=== PATIENT | female | born 1955 | race Caucasian/White ===

== ENCOUNTER 2016-06-25 22:05 | Emergency (ER) | payer OTHER ==
--- NOTE | 2016-06-26 00:28 | ED CLINICAL REPORT ---
Clinical Report - Physicians/Mid Levels [facility] [address] [place] [address] 06/25/2016 22:07 Patient: FENG MOORE Time Seen: 22:43 Mar 2016. Arrived- By private vehicle. Historian- patient. CPT: ER phys charges level 3 plus (#102143). Ant/nasal hemorrhage simple (#[id number]). HISTORY OF PRESENT ILLNESS Chief Complaint: NOSEBLEED. Since today and is still present. Location- left nare. The patient has had epistaxis. Similar symptoms previously: Once, as bad. Seen in the ED. Diagnosis: posterior nosebleed. Recent medical care: Not recently seen/assessed. REVIEW OF SYSTEMS No fever, chills, excessive bruising, bleeding from gums or headache. No visual disturbance, cough, difficulty breathing, chest pain or nausea. No vomiting, diarrhea, abdominal pain, black stools or difficulty with urination. No skin rash or bloody stools. All systems otherwise negative, except as recorded above. PAST HISTORY See nurses notes. Has had prior nosebleeds. No history of bleeding disorders. Medications: Citrucelle. Tylenol PM took 2 tonight. Aspirin Oral (Tablet Chewable 81 mg) 1 tablet, daily. Dicyclomine HCl Oral. Losartan Potassium Oral. Hydroochlorothiazide. Atorvastatin Calcium Oral. Allergies: Shellfish and Chlorine. Definite Moderate (Upper Resp problems and rashes.). SOCIAL HISTORY Former smoker. Occasional alcohol use. No drug use. ADDITIONAL NOTES The nursing notes have been reviewed. PHYSICAL EXAM Vital Signs: 06/25/2016 22:14 BP: 157/91. HR: 90. RR: 18. O2 saturation: 97%. Temp: 97.5 F. Pain level now: 0/10. Appearance: Alert. Anxious. Patient in mild distress. Eyes: Eyes normal inspection. ENT: Ears normal. Nose: Minimal left-nare active bleeding from uncertain location. Fresh clots present. No nasal foreign body. No tenderness to palpation/percussion over the sinuses. Throat: Pharynx normal. Neck: Normal inspection. CVS: Normal heart rate and rhythm. Heart sounds normal. Respiratory: No respiratory distress. Breath sounds normal. Abdomen: Soft and nontender. Back: Normal inspection. Skin: Skin warm. Normal skin color. No rash. Extremities: Extremities exhibit normal ROM. No lower extremity edema. Neuro: Oriented X 3. No motor deficit. No sensory deficit. PROGRESS AND PROCEDURES Management of Epistaxis: The patient was cooperative. Decongestant spray instilled. Bleeding site was from an unidentified area. The patient blew nose to clear clots and pinched the nose temporarily. Examined with nasal speculum. Suction used. On the left; inserted a nasal tampon anteriorly and posteriorly. Following the procedure the patient was stable and there was no further bleeding. No complications. Estimated blood loss: 10 mL. Patient/family counseled. Disposition: Discharged. Condition: stable. CLINICAL IMPRESSION Acute anterior, transient epistaxis INSTRUCTIONS No strenuous activity. Rest. (No hot liquids, sneeze through mouth, keep head up, no aspirin or motrin, and avoid touching the nose. Keep nasal sponge moist every 4 hours with afrin. Gently pull pack out in 48 hours but make sure it is wet before pulling it out. Keep head up and use nose clamp if bleeding starts again. Return to ER for re-bleeding.). OTC Medications: Acetaminophen (available over the counter): take according to label instructions. Follow-up: Return to the emergency department if not well. Understanding of the discharge instructions verbalized by patient and family. Discharge instructions reviewed with and understanding was verbalized by spouse. (Electronically signed by Jethro Patino MD 06/28/2016 9:49)
--- NOTE | 2016-06-26 00:28 | ED CLINICAL REPORT ---
Clinical Report - Physicians/Mid Levels [facility] [address] [place] [address] 06/25/2016 22:07 Patient: FENG MOORE Time Seen: 22:43 Mar 2016. Arrived- By private vehicle. Historian- patient. CPT: ER phys charges level 3 plus (#[id number]). Ant/nasal hemorrhage simple (#[id number]). HISTORY OF PRESENT ILLNESS Chief Complaint: NOSEBLEED. Since today and is still present. Location- left nare. The patient has had epistaxis. Similar symptoms previously: Once, as bad. Seen in the ED. Diagnosis: posterior nosebleed. Recent medical care: Not recently seen/assessed. REVIEW OF SYSTEMS No fever, chills, excessive bruising, bleeding from gums or headache. No visual disturbance, cough, difficulty breathing, chest pain or nausea. No vomiting, diarrhea, abdominal pain, black stools or difficulty with urination. No skin rash or bloody stools. All systems otherwise negative, except as recorded above. PAST HISTORY See nurses notes. Has had prior nosebleeds. No history of bleeding disorders. Medications: Citrucelle. Tylenol PM took 2 tonight. Aspirin Oral (Tablet Chewable 81 mg) 1 tablet, daily. Dicyclomine HCl Oral. Losartan Potassium Oral. Hydroochlorothiazide. Atorvastatin Calcium Oral. Allergies: Shellfish and Chlorine. Definite Moderate (Upper Resp problems and rashes.). SOCIAL HISTORY Former smoker. Occasional alcohol use. No drug use. ADDITIONAL NOTES The nursing notes have been reviewed. PHYSICAL EXAM Vital Signs: 06/25/2016 22:14 BP: 157/91. HR: 90. RR: 18. O2 saturation: 97%. Temp: 97.5 F. Pain level now: 0/10. Appearance: Alert. Anxious. Patient in mild distress. Eyes: Eyes normal inspection. ENT: Ears normal. Nose: Minimal left-nare active bleeding from uncertain location. Fresh clots present. No nasal foreign body. No tenderness to palpation/percussion over the sinuses. Throat: Pharynx normal. Neck: Normal inspection. CVS: Normal heart rate and rhythm. Heart sounds normal. Respiratory: No respiratory distress. Breath sounds normal. Abdomen: Soft and nontender. Back: Normal inspection. Skin: Skin warm. Normal skin color. No rash. Extremities: Extremities exhibit normal ROM. No lower extremity edema. Neuro: Oriented X 3. No motor deficit. No sensory deficit. PROGRESS AND PROCEDURES Management of Epistaxis: The patient was cooperative. Decongestant spray instilled. Bleeding site was from an unidentified area. The patient blew nose to clear clots and pinched the nose temporarily. Examined with nasal speculum. Suction used. On the left; inserted a nasal tampon anteriorly and posteriorly. Following the procedure the patient was stable and there was no further bleeding. No complications. Estimated blood loss: 10 mL. Patient/family counseled. Disposition: Discharged. Condition: stable. CLINICAL IMPRESSION Acute anterior, transient epistaxis INSTRUCTIONS No strenuous activity. Rest. (No hot liquids, sneeze through mouth, keep head up, no aspirin or motrin, and avoid touching the nose. Keep nasal sponge moist every 4 hours with afrin. Gently pull pack out in 48 hours but make sure it is wet before pulling it out. Keep head up and use nose clamp if bleeding starts again. Return to ER for re-bleeding.). OTC Medications: Acetaminophen (available over the counter): take according to label instructions. Follow-up: Return to the emergency department if not well. Understanding of the discharge instructions verbalized by patient and family. Discharge instructions reviewed with and understanding was verbalized by spouse. (Electronically signed by Jethro Patino MD 06/28/2016 9:49)
--- NOTE | 2016-06-26 00:29 | ED NURSING NOTES ---
Clinical Report - Nurses [facility] [address] [place] [address] 06/25/2016 22:07 [id number] Triage time 22:15 Jun 25 2016. Acuity: LEVEL 3. Chief Complaint: NOSEBLEED. Alert. PATSY COMA SCORE: [place] Coma Scale: 15- eyes open spontaneously (4); best verbal response- oriented x 4 (5); best motor response- obeys commands (6). --22:30 Edinson Otero R.N. 22:14 06/25/16. BP: 157/91. HR: 90. RR: 18. O2 saturation: 97% on room air. Temp: 97.5 F. Pain level now: 0/10. --22:30 Edinson Otero R.N. Weight: 68 kg. Height/Length: 64 inches Per Patient. BMI: 25.8. --22:16 Edinson Otero R.N. Medications Atorvastatin Calcium Oral. --22:20 Edinson Otero R.N. Hydroochlorothiazide. --22:20 Edinson Otero R.N. Losartan Potassium Oral. --22:21 Edinson Otero R.N. Dicyclomine HCl Oral. --22:21 Edinson Otero R.N. Aspirin Oral (Tablet Chewable 81 mg) 1 tablet, daily. --22:22 Edinson Otero R.N. Tylenol PM took 2 tonight. --22:23 Edinson Otero R.N. Citrucelle. --22:25 Edinson Otero R.N. Allergies Shellfish and Chlorine. Definite Moderate (Upper Resp problems and rashes.) --22:21 Edinson Otero R.N. History Arrived by private vehicle. Historian: patient. Accompanied by spouse. Primary physician ([place], [place]). ( Nosebleed starting 1/2 hour ago. She and her are on a trip from [place], [place] to [facility] and staying in a hotel at [place] when this happened. Pt states that this happened once before about 3 years ago.). This started just prior to arrival. Onset. (about 1/2 hour ago). 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 PAST MEDICAL HX: Immunizations: status is unknown. The patient is post-menopausal. SOCIAL HX: Former smoker, end date 1986. Never smoker. Alcohol use; consumes two glasses of wine weekly. No drug use. No infectious disease exposure. ABUSE ASSESSMENT: No report of abuse. FALL RISK ASSESSMENT: Fall risk assessment completed. No fall risk identified. NUTRITIONAL RISK ASSESSMENT: The nutritional risk assessment revealed no deficiencies. FUNCTIONAL ASSESSMENT: Functional assessment: no impairments noted. LEARNING NEEDS ASSESSMENT: The learning needs assessment revealed no barriers. SKIN INTEGRITY ASSESSMENT: Skin integrity risk assessment completed. No skin integrity risk identified. --22:30 Edinson Otero R.N. PROBLEMS: HBP. Lymphacitic Cholitis. --22:28 Edinson Otero R.N. ADDITIONAL SURGERIES: Hip Surgery. Hysterectomy. Tonsillectomy. --22:28 Edinson Otero R.N. Interventions To treatment room. No ID band on patient. --22:30 Edinson Otero R.N. PHYSICAL ASSESSMENT Ambulatory to room. GENERAL / NEURO / PSYCH: Alert. HEENT: No facial asymmetry noted. EOM intact. RESPIRATORY: Respirations not labored. CVS: Capillary refill less than 2 seconds. SKIN: Skin is warm and dry. --22:30 Edinson Otero R.N. NURSING PROGRESS NOTES Cold pack applied. Patient gowned. Reassurance given. Patient identifiers checked. Call light placed in reach. Side rails up x 1. Bed placed in lowest position. Brakes of bed on. Patient ready for evaluation- chart flagged and ED physician notified. --22:30 Edinson Otero R.N. 22:15. ( Nose clamp placed on pt's nose.). --22:31 Edinson Otero R.N. 23:45 Patient ambulatory around department, no visible active bleeding at this time. --23:46 McQuoid, Shy, ER Tech1 00:20. ( Merocel Packing trimmed to ~ 1/4" from tip of nose.). --00:51 Edinson Otero R.N. 23:10. ( Merocel Epistaxis Packing placed by [facility]). --00:50 Edinson Otero R.N. DISPOSITION / DISCHARGE 00:25 06/26/16. BP: 136/87. HR: 82. RR: 16. O2 saturation: 98% on room air. Temp: 98.4 F (oral). Pain level now: 0/10. --00:42 Edinson Otero R.N. Departure time: 0030. --00:42 Edinson Otero R.N. 00:30. Condition at departure: improved. No learning barriers present. Discharge instructions provided and reviewed with the patient. Reviewed medication(s) (continue your usual medications). Reviewed referral to family practice. Work note given. Patient verbalized understanding. Written instructions provided in [place]. The patient was discharged by the physician. She was discharged home and accompanied by spouse. She left the Emergency Department ambulatory and via private vehicle. Spouse driving. --00:48 Edinson Otero R.N. Locked/Released at 06/26/2016 0:52 by Edinson Otero R.N.
--- NOTE | 2016-06-26 00:29 | ED NURSING NOTES ---
Clinical Report - Nurses [facility] [address] [place] [address] 06/25/2016 22:07 [id number] Triage time 22:15 Jun 25 2016. Acuity: LEVEL 3. Chief Complaint: NOSEBLEED. Alert. PATSY COMA SCORE: [place] Coma Scale: 15- eyes open spontaneously (4); best verbal response- oriented x 4 (5); best motor response- obeys commands (6). --22:30 Edinson Otero R.N. 22:14 06/25/16. BP: 157/91. HR: 90. RR: 18. O2 saturation: 97% on room air. Temp: 97.5 F. Pain level now: 0/10. --22:30 Edinson Otero R.N. Weight: 68 kg. Height/Length: 64 inches Per Patient. BMI: 25.8. --22:16 Edinson Otero R.N. Medications Atorvastatin Calcium Oral. --22:20 Edinson Otero R.N. Hydroochlorothiazide. --22:20 Edinson Otero R.N. Losartan Potassium Oral. --22:21 Edinson Otero R.N. Dicyclomine HCl Oral. --22:21 Edinson Otero R.N. Aspirin Oral (Tablet Chewable 81 mg) 1 tablet, daily. --22:22 Edinson Otero R.N. Tylenol PM took 2 tonight. --22:23 Edinson Otero R.N. Citrucelle. --22:25 Edinson Otero R.N. Allergies Shellfish and Chlorine. Definite Moderate (Upper Resp problems and rashes.) --22:21 Edinson Otero R.N. History Arrived by private vehicle. Historian: patient. Accompanied by spouse. Primary physician ([place], [place]). ( Nosebleed starting 1/2 hour ago. She and her are on a trip from [place], [place] to [facility] and staying in a hotel at [place] when this happened. Pt states that this happened once before about 3 years ago.). This started just prior to arrival. Onset. (about 1/2 hour ago). 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 PAST MEDICAL HX: Immunizations: status is unknown. The patient is post-menopausal. SOCIAL HX: Former smoker, end date 1986. Never smoker. Alcohol use; consumes two glasses of wine weekly. No drug use. No infectious disease exposure. ABUSE ASSESSMENT: No report of abuse. FALL RISK ASSESSMENT: Fall risk assessment completed. No fall risk identified. NUTRITIONAL RISK ASSESSMENT: The nutritional risk assessment revealed no deficiencies. FUNCTIONAL ASSESSMENT: Functional assessment: no impairments noted. LEARNING NEEDS ASSESSMENT: The learning needs assessment revealed no barriers. SKIN INTEGRITY ASSESSMENT: Skin integrity risk assessment completed. No skin integrity risk identified. --22:30 Edinson Otero R.N. PROBLEMS: HBP. Lymphacitic Cholitis. --22:28 Edinson Otero R.N. ADDITIONAL SURGERIES: Hip Surgery. Hysterectomy. Tonsillectomy. --22:28 Edinson Otero R.N. Interventions To treatment room. No ID band on patient. --22:30 Edinson Otero R.N. PHYSICAL ASSESSMENT Ambulatory to room. GENERAL / NEURO / PSYCH: Alert. HEENT: No facial asymmetry noted. EOM intact. RESPIRATORY: Respirations not labored. CVS: Capillary refill less than 2 seconds. SKIN: Skin is warm and dry. --22:30 Edinson Otero R.N. NURSING PROGRESS NOTES Cold pack applied. Patient gowned. Reassurance given. Patient identifiers checked. Call light placed in reach. Side rails up x 1. Bed placed in lowest position. Brakes of bed on. Patient ready for evaluation- chart flagged and ED physician notified. --22:30 Edinson Otero R.N. 22:15. ( Nose clamp placed on pt's nose.). --22:31 Edinson Otero R.N. 23:45 Patient ambulatory around department, no visible active bleeding at this time. --23:46 McQuoid, Shy, ER Tech1 00:20. ( Merocel Packing trimmed to ~ 1/4" from tip of nose.). --00:51 Edinson Otero R.N. 23:10. ( Merocel Epistaxis Packing placed by [facility]). --00:50 Edinson Otero R.N. DISPOSITION / DISCHARGE 00:25 06/26/16. BP: 136/87. HR: 82. RR: 16. O2 saturation: 98% on room air. Temp: 98.4 F (oral). Pain level now: 0/10. --00:42 Edinson Otero R.N. Departure time: 0030. --00:42 Edinson Otero R.N. 00:30. Condition at departure: improved. No learning barriers present. Discharge instructions provided and reviewed with the patient. Reviewed medication(s) (continue your usual medications). Reviewed referral to family practice. Work note given. Patient verbalized understanding. Written instructions provided in German. The patient was discharged by the physician. She was discharged home and accompanied by spouse. She left the Emergency Department ambulatory and via private vehicle. Spouse driving. --00:48 Edinson Otero R.N. Locked/Released at 06/26/2016 0:52 by Edinson tOero R.N.
--- NOTE | 2016-06-28 09:49 | ED DISCHARGE INSTRUCTIONS ---
Patient: FENG MOORE General Instructions [facility] VisitID: [id number] [address] [place] [address] 61y, F Registration Date/Time: 06/25/2016 Acute anterior, transient epistaxis INSTRUCTIONS No strenuous activity. Rest. (No hot liquids, sneeze through mouth, keep head up, no aspirin or motrin, and avoid touching the nose. Keep nasal sponge moist every 4 hours with afrin. Gently pull pack out in 48 hours but make sure it is wet before pulling it out. Keep head up and use nose clamp if bleeding starts again. Return to ER for re-bleeding.). OTC Medications: Acetaminophen (available over the counter): take according to label instructions. Follow-up: Return to the emergency department if not well. Understanding of the discharge instructions verbalized by patient and family. Discharge instructions reviewed with and understanding was verbalized by spouse. ADDITIONAL INFORMATION Nosebleed [Adult] Bleeding from the nose most commonly occurs due to injury or drying and cracking of the inner lining of the nose. This can occur during a "common cold," "hay fever" attack, a very hot day, or from dry air in the winter. High blood pressure and hardening of the arteries (atherosclerosis) may also cause nosebleeds. If the bleeding site is found, it may be treated with a chemical or heat or electricity to cause a blood clot to form (cauterized). If the bleeding continues after cautery or if the bleeding site cannot be found, a packing may be placed in your nose to apply pressure and stop the bleeding. The packing may be made of gauze or sponge. A small balloon catheter is sometimes used. These need to be removed by your doctor. Some types of packing dissolve on their own. Home Care: If a packing was put in your nose, unless told otherwise, do not pull on it or try to remove it yourself. You will be given an appointment to have it removed. You may also have been given antibiotics to prevent a sinus infection. If so, complete all the medicine. Do not blow your nose for 12 hours after the bleeding stops. This will allow a strong blood clot to form. Do not pick your nose. This may restart bleeding. Avoid alcohol and hot liquids for the next two days. Alcohol or hot liquids in your mouth can dilate blood vessels in your nose and cause bleeding to start again. Do not take ibuprofen (Advil, Motrin), naprosyn (Aleve) or aspirin-containing medicines since these thin the blood and may promote nose bleeding. You may take Tylenol (acetaminophen) for pain, unless another pain medicine was prescribed. If the bleeding starts again, sit up and lean forward to prevent swallowing blood. Pinch your nose tightly for exactly 5 minutes (watch the clock). If bleeding is not controlled, continue to pinch and call your doctor or return to this facility. If high blood pressure was a cause for your nosebleed, have your blood pressure checked again tomorrow. If you have a "cold" or "hay fever" or dry nasal membranes, lubricate the nasal passages by applying a small amount of Vaseline inside the nose with a Q-tip twice a day (morning and night). Avoid overheating your home, which can dry the air and worsen your condition. Follow Up with your doctor as advised for packing removal. Nasal packing should be rechecked or removed within 2-3 days. Get Prompt Medical Attention if any of the following occur: Another nosebleed that you cannot control Dizziness, weakness or fainting Fever of 100.4F (38C) or higher, or as directed by your healthcare provider Headache Sinus or facial pain Shortness of breath or trouble breathing You have been given the following additional information: Epistaxis (Adult) No strenuous activity. Rest. (Electronically signed by Jethro Patino MD 06/28/2016 9:49)
--- NOTE | 2016-06-28 09:49 | ED MAR SUMMARY ---
..... Medication Administration Record [facility] [address] [place], [place] [id number] Patient: FENG MOORE Visit ID: [id number] 61y, F Weight: 68.0 kg Height/Length: 64 in BMI: 25.8 ALLERGIES: Shellfish and Chlorine
--- NOTE | 2016-06-28 09:49 | ED MAR SUMMARY ---
..... Medication Administration Record [facility] [address] [place], [place] [id number] Patient: FENG MOORE Visit ID: [id number] 61y, F Weight: 68.0 kg Height/Length: 64 in BMI: 25.8 ALLERGIES: Shellfish and Chlorine
--- NOTE | 2016-06-28 09:50 | ED MED RECONCILIATION SUMMARY ---
Patient: FENG MOORE Medication Reconciliation Report [facility] VisitID: [id number] [address] [place] [address] 61y, F Registration Date/Time: 06/25/2016 Weight: 68.0 kg Height/Length: 64 in. BMI: 25.8 ALLERGIES: Shellfish and Chlorine The patient's Home Medications are listed below: THE FOLLOWING MEDICATIONS NEED TO BE RECONCILED: Aspirin Oral (81 mg) 1 tablet, daily Atorvastatin Calcium Oral Citrucelle Dicyclomine HCl Oral Hydroochlorothiazide Losartan Potassium Oral Tylenol PM took 2 tonight The source(s) of the original Home Medication information: Not obtained. The following Medications were given to the patient in the Emergency Department: None. The following Medications were prescribed to the patient: Acetaminophen (available over the counter): take according to label instructions. -- Jethro Patino MD
--- NOTE | 2016-06-28 09:50 | ED MED RECONCILIATION SUMMARY ---
Patient: FENG MOORE Medication Reconciliation Report [facility] VisitID: [id number] [address] [place] [address] 61y, F Registration Date/Time: 06/25/2016 Weight: 68.0 kg Height/Length: 64 in. BMI: 25.8 ALLERGIES: Shellfish and Chlorine The patient's Home Medications are listed below: THE FOLLOWING MEDICATIONS NEED TO BE RECONCILED: Aspirin Oral (81 mg) 1 tablet, daily Atorvastatin Calcium Oral Citrucelle Dicyclomine HCl Oral Hydroochlorothiazide Losartan Potassium Oral Tylenol PM took 2 tonight The source(s) of the original Home Medication information: Not obtained. The following Medications were given to the patient in the Emergency Department: None. The following Medications were prescribed to the patient: Acetaminophen (available over the counter): take according to label instructions. -- Jethro Patino MD
== END 2016-06-26 00:30 | disposition home or self-care (01) ==
LOC: ED SRH 22:05
DX: R04.0 Epistaxis (principal); I10 Essential (primary) hypertension; Z79.82 Long term (current) use of aspirin; Z87.891 Personal history of nicotine dependence; Z91.013 Allergy to seafood; Z91.048 Other nonmedicinal substance allergy status

== ENCOUNTER 2016-06-26 02:55 | Emergency (ER) | payer OTHER ==
--- NOTE | 2016-06-26 08:07 | ED CLINICAL REPORT ---
Clinical Report - Physicians/Mid Levels [facility] [address] [place] [address] 06/26/2016 2:55 [id number] Time Seen: 03:05 Jun 26 2016. Arrived- By private vehicle. Historian- patient. CPT: ER phys charges level 4 plus (#468002). HISTORY OF PRESENT ILLNESS Chief Complaint: NOSEBLEED. Re-bleed after treated today. Since today and is still present. Location- left nare. The patient has had epistaxis. Similar symptoms previously: Recent medical care: The patient was seen recently at this facility (today). REVIEW OF SYSTEMS No chills, excessive bruising, bleeding from gums, headache or cough. No difficulty breathing, chest pain, nausea, vomiting or diarrhea. No abdominal pain, black stools, difficulty with urination, skin rash or bloody stools. All systems otherwise negative, except as recorded above. PAST HISTORY Has had prior nosebleeds. Medications: Hydrochlorothiazide Oral. Dicyclomine HCl Oral. LOSARTAN. Atorvastatin Calcium Oral. Aspirin Oral. Allergies: Shellfish and Chlorine. Definite Moderate (Upper Resp problems and rashes.). SOCIAL HISTORY Never smoker. Occasional alcohol use. No drug use. ADDITIONAL NOTES The nursing notes have been reviewed. PHYSICAL EXAM Vital Signs: 06/26/2016 03:04 BP: 148/91. HR: 80. RR: 16. O2 saturation: 100%. Temp: 98.0 F. Appearance: Alert. Anxious. Patient in mild distress. Eyes: Pale conjunctivae. Eyes normal inspection. ENT: Ears normal. Throat: Bleeding from nasopharynx. Pharynx normal. Nose: Moderate left-nare active bleeding from uncertain location. Neck: Normal inspection. CVS: Normal heart rate and rhythm. Heart sounds normal. Respiratory: No respiratory distress. Breath sounds normal. Abdomen: Soft and nontender. Back: Normal inspection. Skin: Skin warm. Normal skin color. No rash. Extremities: Extremities exhibit normal ROM. No lower extremity edema. Neuro: Oriented X 3. No motor deficit. No sensory deficit. LABS, X-RAYS, AND EKG Laboratory Tests: CBC w Diff: (FLORA: 06/26/2016 04:28) ( MsgRcvd 06/26/2016 04:42) Final results Test Result Flag Units (Reference) WHITE BLOOD COUNT 8.8 K/uL (4.5-11.5) RED BLOOD COUNT 4.36 M/uL (4.00-5.20) HEMOGLOBIN 13.9 gm/dL (12.0-16.0) HEMATOCRIT 41.7 % (36.0-46.0) MEAN CELL VOLUME 96 fL (80-100) MEAN CORPUSCULAR HGB 32 pg (26-34) MEAN CORPUSCULAR HGB CONC 33 g/dL (31-37) RED CELL DISTRIBUTION WIDTH 13.5 % (11.6-14.8) PLATELET COUNT 169 K/uL (150-400) LYMPH % 35.7 % (25-40) MONO % 12.4 % (3-14) GRANULOCYTE % 51.9 L (53-90) PT with INR: (FLORA: 06/26/2016 04:28) ( MsgRcvd 06/26/2016 04:51) Final results Test Result Flag Units (Reference) INR 0.9 (0.8-1.2) Low Intensity Therapy: INR 1.5-2.0 PT range 18.5-23.1Mod.Intensity Therapy: INR 2.0-3.0 PT range 23.1-31.5High Intensity Therapy: INR 2.5-3.5 PT range 27.4-35.5High Intensity Therapy 2: INR 3.0-4.0 PT range 31.5-39.3 APTT 30 SECONDS (24-34) . PROGRESS AND PROCEDURES Management of Epistaxis: The patient was cooperative. Bleeding site was from an unidentified area. The patient blew nose to clear clots and pinched the nose temporarily. Examined with nasal speculum. Suction used. On the left; inserted a nasal balloon anteriorly and posteriorly. Following the procedure the patient was stable and there was no further bleeding. No complications. Estimated blood loss: 15 mL. Course of Care: Pt failed merocele packing so balloon placed. Pt had intermittent slow bleeding so contacted ENT , Dr Raman and he will see the patient in the office at 0830 today. Pt observed in the ER until able to go over to the office. Patient/family counseled. Disposition: Discharged. Condition: stable. CLINICAL IMPRESSION Acute posterior, major epistaxis (Recurrent). INSTRUCTIONS Warnings: Further evaluation is necessary. GENERAL WARNINGS: Return or contact your physician immediately if your condition worsens or changes unexpectedly, if not improving as expected, or if other problems arise. Understanding of the discharge instructions verbalized by patient. Discharge instructions reviewed with and understanding was verbalized by spouse. Follow-up with: Mukesh Raman MD, ENT, , [address], , [place], [id number] Follow up today in one hour as scheduled. Reason for referral: nose bleed. (Electronically signed by Jethro Patino MD 06/28/2016 10:15)
--- NOTE | 2016-06-26 08:07 | ED NURSING NOTES ---
Clinical Report - Nurses [facility] [address] [place] [address] 06/26/2016 2:55 Patient: FENG MOORE TRIAGE Triage time 02:59 Jun 26 2016. Chief Complaint: NOSEBLEED. 03:04 06/26/16. --03:04 Lilly Mckinney R.N. 03:04 06/26/16. BP: 148/91. HR: 80. RR: 16. O2 saturation: 100%. Temp: 98.0 F. Pain level now 310. --03:04 Lilly Mckinney R.N. Acuity: LEVEL 4. --03:04 Lilly Mckinney R.N. Acuity: LEVEL 3. --07:48 Neida Chapin R.N. Weight: 68 kg. Height/Length: 64 inches. BMI: 25.8. --02:59 Lilly Mckinney R.N. Medications Aspirin Oral. --03:01 Lilly Mckinney R.N. Atorvastatin Calcium Oral. --03:02 Lilly Mckinney R.N. LOSARTAN. --03:02 Lilly Mckinney R.N. Dicyclomine HCl Oral. --03:02 Lilly Mckinney R.N. Hydrochlorothiazide Oral. --03:02 Lilly Mckinney R.N. Medication/allergy information source: the patient. --03:04 Lilly Mckinney R.N. Allergies Shellfish and Chlorine. Definite Moderate (Upper Resp problems and rashes.) --03:02 Lilly Mckinney R.N. History Arrived by private vehicle. Historian: patient. Unaccompanied. This started just prior to arrival. ( just discharged from ED following packing of left nare for epistaxis. now bleeding from the right.). 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 SOCIAL HX: Never smoker. Regular alcohol use; consumes two glasses of wine. No drug use. No infectious disease exposure. ABUSE ASSESSMENT: No report of abuse. SELF HARM ASSESSMENT: A self harm assessment was performed. The patient answered "no" to the question "Have you recently felt down, depressed, or hopeless?", "Have you noticed less interest or pleasure in doing things?", "Do you have thoughts of harming or killing yourself?", "Are you here because you tried to hurt yourself?", "Have you ever tried to hurt yourself before today?", "Have you recently had thoughts about harming or killing others?" and "Do you have any dangerous items in your possession?". NUTRITIONAL RISK ASSESSMENT: The nutritional risk assessment revealed no deficiencies. FUNCTIONAL ASSESSMENT: Functional assessment: no impairments noted. LEARNING NEEDS ASSESSMENT: The learning needs assessment revealed no barriers. SKIN INTEGRITY ASSESSMENT: Skin integrity risk assessment completed. No skin integrity risk identified. --03:04 Lilly Mckinney R.N. PROBLEMS: Hypercholesterolemia. Epistaxis. HBP. --03:02 Lilly Mckinney R.N. ADDITIONAL SURGERIES: Hip Surgery. Hysterectomy. Tonsillectomy. --03:02 Lilly Mckinney R.N. Interventions ID band on patient. --03:04 Lilly Mckinney R.N. PHYSICAL ASSESSMENT 03:06 06/26/16. Ambulatory to room. GENERAL / NEURO / PSYCH: Alert. Appears anxious. HEENT: Pupils equal, round and reactive to light. EOM intact. ( blood from left medial tear duct). Right-nare active bleeding anteriorly. CVS: Capillary refill less than 2 seconds. SKIN: Skin is warm and dry. --03:06 Lilly Mckinney R.N. NURSING PROGRESS NOTES 03:05 06/26/16. Patient ready for evaluation. --03:05 Lilly Mckinney R.N. 03:05 06/26/16. Head of bed elevated. Patient identifiers checked. Call light placed in reach. Side rails up x 1. Bed placed in lowest position. Brakes of bed on. --03:05 Lilly Mckinney R.NEd 04:05 06/26/16. EPISTAXIS MANAGEMENT: Epistaxis control performed by ED physician. Preparation: placement of pulse oximeter, suction set up and ENT tray at bedside. Procedure to left nare: nasal balloon inserted. Status post-procedure: she was stable. --04:30 Lilly Mckinney R.N. 04:25 06/26/16. Patient ID band checked for patient name and birthdate: patient confirmed. Blood samples drawn from the right antecubital space with syringe and 22g butterfly by nurse ; labeled in presence of the patient and sent to lab: rainbow set. --04:31 Lilly Mckinney R.NEd 04:32 06/26/16. Reassessment after intervention. Overall patient status is improved- she states feels better. --04:32 Lilly Mckinney R.N. 04:32 06/26/16. BP: 142/86. HR: 100. RR: 16. O2 saturation: 98%. Pain level now 4/10. --04:32 Lilly Mckinney R.NEd 05:53 06/26/16. The patient reports no complaints and she is resting quietly. Overall patient status is improved- she states feels better. --05:53 Lilly Mckinney R.N. 07:01 06/26/16. Care transferred and report given (to DANITA Montiel). --07:01 Lilly Mckinney R.N. Care transferred and report received (HIRA Carr). --07:11 Get Smith R.N. The patient reports no complaints and she is calm. Overall patient status- she states feels the same. --07:29 Get Smith R.N. DISPOSITION / DISCHARGE 08:26 06/26/16. Departure time: 0822. ( RN to room to discharge patient and go over instructions. Pt previously given Dr Zamarripa information and address, to present to ENT clinic at 0830. At that time this RN told patient she would be back for a last set of vitals and to review discharge instructions. Upon going into room to discharge pt, gown on bed and pt had already left with spouse to go to ENT in POV. MD notified and aware of no discharge vitals.). The patient left prior to discharge education being provided. The patient was discharged by the physician. She was discharged home and accompanied by spouse. She left the Emergency Department ambulatory and via private vehicle. Spouse driving. --08:26 Neida Chapin R.N. Locked/Released at 06/26/2016 12:27 by Neida Chapin R.N.
--- NOTE | 2016-06-26 08:07 | ED ORDER SUMMARY ---
..... Patient: FENG MOORE OrderSheet [facility] VisitID: [id number] [address] [place] [address] 61y, F Registration Date/Time: 06/26/2016 ORDER SHEET Weight: 68.0 kg Allergies: Shellfish and Chlorine GENERAL ORDERS: CBC w Diff Urgent (04:06/26/2016 Luis GUZMAN) (Ack 4:20 AMcQuoid ER Tech1) (4:32 AMcQuoid ER Tech1) PT with INR Urgent (04:06/26/2016 Luis GUZMAN) (Ack 4:20 AMcQuoid ER Tech1) (4:32 AMcQuoid ER Tech1) PTT Urgent (04:06/26/2016 Luis GUZMAN) (Ack 4:20 AMcQuoid ER Tech1) (4:32 AMcQuoid ER Tech1) MEDICATION ORDERS: IV FLUIDS: ORDER SHEET NOTES: [Electronically signed by Neida Chapin R.N. (12:06/26/2016)] [Electronically signed by Jethro Patino MD (10:15 06/28/2016)] [Electronically locked/signed by Neida Chapin R.N. (12:06/26/2016)]
--- NOTE | 2016-06-26 08:07 | ED CLINICAL REPORT ---
Clinical Report - Physicians/Mid Levels [facility] [address] [place] [address] 06/26/2016 2:55 Patient: FENG MOORE [facility] [id number] Time Seen: 03:05 Jun 26 2016. Arrived- By private vehicle. Historian- patient. CPT: ER phys charges level 4 plus (#[id number]). HISTORY OF PRESENT ILLNESS Chief Complaint: NOSEBLEED. Re-bleed after treated today. Since today and is still present. Location- left nare. The patient has had epistaxis. Similar symptoms previously: Recent medical care: The patient was seen recently at this facility (today). REVIEW OF SYSTEMS No chills, excessive bruising, bleeding from gums, headache or cough. No difficulty breathing, chest pain, nausea, vomiting or diarrhea. No abdominal pain, black stools, difficulty with urination, skin rash or bloody stools. All systems otherwise negative, except as recorded above. PAST HISTORY Has had prior nosebleeds. Medications: Hydrochlorothiazide Oral. Dicyclomine HCl Oral. LOSARTAN. Atorvastatin Calcium Oral. Aspirin Oral. Allergies: Shellfish and Chlorine. Definite Moderate (Upper Resp problems and rashes.). SOCIAL HISTORY Never smoker. Occasional alcohol use. No drug use. ADDITIONAL NOTES The nursing notes have been reviewed. PHYSICAL EXAM Vital Signs: 06/26/2016 03:04 BP: 148/91. HR: 80. RR: 16. O2 saturation: 100%. Temp: 98.0 F. Appearance: Alert. Anxious. Patient in mild distress. Eyes: Pale conjunctivae. Eyes normal inspection. ENT: Ears normal. Throat: Bleeding from nasopharynx. Pharynx normal. Nose: Moderate left-nare active bleeding from uncertain location. Neck: Normal inspection. CVS: Normal heart rate and rhythm. Heart sounds normal. Respiratory: No respiratory distress. Breath sounds normal. Abdomen: Soft and nontender. Back: Normal inspection. Skin: Skin warm. Normal skin color. No rash. Extremities: Extremities exhibit normal ROM. No lower extremity edema. Neuro: Oriented X 3. No motor deficit. No sensory deficit. LABS, X-RAYS, AND EKG Laboratory Tests: CBC w Diff: (FLORA: 06/26/2016 04:28) ( MsgRcvd 06/26/2016 04:42) Final results Test Result Flag Units (Reference) WHITE BLOOD COUNT 8.8 K/uL (4.5-11.5) RED BLOOD COUNT 4.36 M/uL (4.00-5.20) HEMOGLOBIN 13.9 gm/dL (12.0-16.0) HEMATOCRIT 41.7 % (36.0-46.0) MEAN CELL VOLUME 96 fL (80-100) MEAN CORPUSCULAR HGB 32 pg (26-34) MEAN CORPUSCULAR HGB CONC 33 g/dL (31-37) RED CELL DISTRIBUTION WIDTH 13.5 % (11.6-14.8) PLATELET COUNT 169 K/uL (150-400) LYMPH % 35.7 % (25-40) MONO % 12.4 % (3-14) GRANULOCYTE % 51.9 L (53-90) PT with INR: (FLORA: 06/26/2016 04:28) ( MsgRcvd 06/26/2016 04:51) Final results Test Result Flag Units (Reference) INR 0.9 (0.8-1.2) Low Intensity Therapy: INR 1.5-2.0 PT range 18.5-23.1Mod.Intensity Therapy: INR 2.0-3.0 PT range 23.1-31.5High Intensity Therapy: INR 2.5-3.5 PT range 27.4-35.5High Intensity Therapy 2: INR 3.0-4.0 PT range 31.5-39.3 APTT 30 SECONDS (24-34) . PROGRESS AND PROCEDURES Management of Epistaxis: The patient was cooperative. Bleeding site was from an unidentified area. The patient blew nose to clear clots and pinched the nose temporarily. Examined with nasal speculum. Suction used. On the left; inserted a nasal balloon anteriorly and posteriorly. Following the procedure the patient was stable and there was no further bleeding. No complications. Estimated blood loss: 15 mL. Course of Care: Pt failed merocele packing so balloon placed. Pt had intermittent slow bleeding so contacted ENT , Dr Raman and he will see the patient in the office at 0830 today. Pt observed in the ER until able to go over to the office. Patient/family counseled. Disposition: Discharged. Condition: stable. CLINICAL IMPRESSION Acute posterior, major epistaxis (Recurrent). INSTRUCTIONS Warnings: Further evaluation is necessary. GENERAL WARNINGS: Return or contact your physician immediately if your condition worsens or changes unexpectedly, if not improving as expected, or if other problems arise. Understanding of the discharge instructions verbalized by patient. Discharge instructions reviewed with and understanding was verbalized by spouse. Follow-up with: Mukesh Raman MD, ENT, , [address], , [place], [id number] Follow up today in one hour as scheduled. Reason for referral: nose bleed. (Electronically signed by Jethro Patino MD 06/28/2016 10:15)
--- NOTE | 2016-06-26 08:07 | ED ORDER SUMMARY ---
..... Patient: FENG MOORE OrderSheet [facility] VisitID: [id number] [address] [place] [address] 61y, F Registration Date/Time: 06/26/2016 ORDER SHEET Weight: 68.0 kg Allergies: Shellfish and Chlorine GENERAL ORDERS: CBC w Diff Urgent (04:06/26/2016 Luis GUZMAN) (Ack 4:20 AMcQuoid ER Tech1) (4:32 AMcQuoid ER Tech1) PT with INR Urgent (04:06/26/2016 Luis GUZMAN) (Ack 4:20 AMcQuoid ER Tech1) (4:32 AMcQuoid ER Tech1) PTT Urgent (04:06/26/2016 Luis GUZMAN) (Ack 4:20 AMcQuoid ER Tech1) (4:32 AMcQuoid ER Tech1) MEDICATION ORDERS: IV FLUIDS: ORDER SHEET NOTES: [Electronically signed by Neida Chapin R.N. (12:06/26/2016)] [Electronically signed by Jethro Patino MD (10:15 06/28/2016)] [Electronically locked/signed by Neida Chapin R.N. (12:06/26/2016)]
--- NOTE | 2016-06-28 10:15 | ED MAR SUMMARY ---
..... Medication Administration Record [facility] [address] [place], [place] [id number] Patient: FENG MOORE Visit ID: [id number] 61y, F Weight: 68.0 kg Height/Length: 64 in BMI: 25.8 ALLERGIES: Shellfish and Chlorine
--- NOTE | 2016-06-28 10:15 | ED MAR SUMMARY ---
..... Medication Administration Record [facility] [address] [place], [place] [id number] Patient: FENG MOORE Visit ID: [id number] 61y, F Weight: 68.0 kg Height/Length: 64 in BMI: 25.8 ALLERGIES: Shellfish and Chlorine
--- NOTE | 2016-06-28 10:15 | ED DISCHARGE INSTRUCTIONS ---
Patient: FENG MOORE General Instructions [facility] VisitID: [id number] [address] [place] [address] 61y, F Registration Date/Time: 06/26/2016 Acute posterior, major epistaxis (Recurrent). INSTRUCTIONS Warnings: Further evaluation is necessary. GENERAL WARNINGS: Return or contact your physician immediately if your condition worsens or changes unexpectedly, if not improving as expected, or if other problems arise. Understanding of the discharge instructions verbalized by patient. Discharge instructions reviewed with and understanding was verbalized by spouse. Follow-up with: Mukesh Raman MD, ENT, , [address] , [place], [id number] Follow up today in one hour as scheduled. Reason for referral: nose bleed. ADDITIONAL INFORMATION Nosebleed [Adult] Bleeding from the nose most commonly occurs due to injury or drying and cracking of the inner lining of the nose. This can occur during a "common cold," "hay fever" attack, a very hot day, or from dry air in the winter. High blood pressure and hardening of the arteries (atherosclerosis) may also cause nosebleeds. If the bleeding site is found, it may be treated with a chemical or heat or electricity to cause a blood clot to form (cauterized). If the bleeding continues after cautery or if the bleeding site cannot be found, a packing may be placed in your nose to apply pressure and stop the bleeding. The packing may be made of gauze or sponge. A small balloon catheter is sometimes used. These need to be removed by your doctor. Some types of packing dissolve on their own. Home Care: If a packing was put in your nose, unless told otherwise, do not pull on it or try to remove it yourself. You will be given an appointment to have it removed. You may also have been given antibiotics to prevent a sinus infection. If so, complete all the medicine. Do not blow your nose for 12 hours after the bleeding stops. This will allow a strong blood clot to form. Do not pick your nose. This may restart bleeding. Avoid alcohol and hot liquids for the next two days. Alcohol or hot liquids in your mouth can dilate blood vessels in your nose and cause bleeding to start again. Do not take ibuprofen (Advil, Motrin), naprosyn (Aleve) or aspirin-containing medicines since these thin the blood and may promote nose bleeding. You may take Tylenol (acetaminophen) for pain, unless another pain medicine was prescribed. If the bleeding starts again, sit up and lean forward to prevent swallowing blood. Pinch your nose tightly for exactly 5 minutes (watch the clock). If bleeding is not controlled, continue to pinch and call your doctor or return to this facility. If high blood pressure was a cause for your nosebleed, have your blood pressure checked again tomorrow. If you have a "cold" or "hay fever" or dry nasal membranes, lubricate the nasal passages by applying a small amount of Vaseline inside the nose with a Q-tip twice a day (morning and night). Avoid overheating your home, which can dry the air and worsen your condition. Follow Up with your doctor as advised for packing removal. Nasal packing should be rechecked or removed within 2-3 days. Get Prompt Medical Attention if any of the following occur: Another nosebleed that you cannot control Dizziness, weakness or fainting Fever of 100.4F (38C) or higher, or as directed by your healthcare provider Headache Sinus or facial pain Shortness of breath or trouble breathing You have been given the following additional information: Epistaxis (Adult) (Electronically signed by Jethro Patino MD 06/28/2016 10:15)
--- NOTE | 2016-06-28 10:15 | ED MED RECONCILIATION SUMMARY ---
Patient: FENG MOORE Medication Reconciliation Report [facility] VisitID: [id number] [address] [place] [address] 61y, F Registration Date/Time: 06/26/2016 Weight: 68.0 kg Height/Length: 64 in. BMI: 25.8 ALLERGIES: Shellfish and Chlorine The patient's Home Medications are listed below: THE FOLLOWING MEDICATIONS NEED TO BE RECONCILED: Aspirin Oral Atorvastatin Calcium Oral Dicyclomine HCl Oral Hydrochlorothiazide Oral LOSARTAN The source(s) of the original Home Medication information: patient The following Medications were given to the patient in the Emergency Department: None. The following Medications were prescribed to the patient: None.
--- NOTE | 2016-06-28 10:15 | ED DISCHARGE INSTRUCTIONS ---
Patient: FENG MOORE General Instructions [facility] VisitID: [id number] [address] [place] [address] 61y, F Registration Date/Time: 06/26/2016 Acute posterior, major epistaxis (Recurrent). INSTRUCTIONS Warnings: Further evaluation is necessary. GENERAL WARNINGS: Return or contact your physician immediately if your condition worsens or changes unexpectedly, if not improving as expected, or if other problems arise. Understanding of the discharge instructions verbalized by patient. Discharge instructions reviewed with and understanding was verbalized by spouse. Follow-up with: Mukesh Raman MD, ENT, , [address], , [place], [id number] Follow up today in one hour as scheduled. Reason for referral: nose bleed. ADDITIONAL INFORMATION Nosebleed [Adult] Bleeding from the nose most commonly occurs due to injury or drying and cracking of the inner lining of the nose. This can occur during a "common cold," "hay fever" attack, a very hot day, or from dry air in the winter. High blood pressure and hardening of the arteries (atherosclerosis) may also cause nosebleeds. If the bleeding site is found, it may be treated with a chemical or heat or electricity to cause a blood clot to form (cauterized). If the bleeding continues after cautery or if the bleeding site cannot be found, a packing may be placed in your nose to apply pressure and stop the bleeding. The packing may be made of gauze or sponge. A small balloon catheter is sometimes used. These need to be removed by your doctor. Some types of packing dissolve on their own. Home Care: If a packing was put in your nose, unless told otherwise, do not pull on it or try to remove it yourself. You will be given an appointment to have it removed. You may also have been given antibiotics to prevent a sinus infection. If so, complete all the medicine. Do not blow your nose for 12 hours after the bleeding stops. This will allow a strong blood clot to form. Do not pick your nose. This may restart bleeding. Avoid alcohol and hot liquids for the next two days. Alcohol or hot liquids in your mouth can dilate blood vessels in your nose and cause bleeding to start again. Do not take ibuprofen (Advil, Motrin), naprosyn (Aleve) or aspirin-containing medicines since these thin the blood and may promote nose bleeding. You may take Tylenol (acetaminophen) for pain, unless another pain medicine was prescribed. If the bleeding starts again, sit up and lean forward to prevent swallowing blood. Pinch your nose tightly for exactly 5 minutes (watch the clock). If bleeding is not controlled, continue to pinch and call your doctor or return to this facility. If high blood pressure was a cause for your nosebleed, have your blood pressure checked again tomorrow. If you have a "cold" or "hay fever" or dry nasal membranes, lubricate the nasal passages by applying a small amount of Vaseline inside the nose with a Q-tip twice a day (morning and night). Avoid overheating your home, which can dry the air and worsen your condition. Follow Up with your doctor as advised for packing removal. Nasal packing should be rechecked or removed within 2-3 days. Get Prompt Medical Attention if any of the following occur: Another nosebleed that you cannot control Dizziness, weakness or fainting Fever of 100.4F (38C) or higher, or as directed by your healthcare provider Headache Sinus or facial pain Shortness of breath or trouble breathing You have been given the following additional information: Epistaxis (Adult) (Electronically signed by Jethro Patino MD 06/28/2016 10:15)
--- NOTE | 2016-06-28 10:15 | ED MED RECONCILIATION SUMMARY ---
Patient: FENG MOORE Medication Reconciliation Report [facility] VisitID: [id number] [address] [place] [address] 61y, F Registration Date/Time: 06/26/2016 Weight: 68.0 kg Height/Length: 64 in. BMI: 25.8 ALLERGIES: Shellfish and Chlorine The patient's Home Medications are listed below: THE FOLLOWING MEDICATIONS NEED TO BE RECONCILED: Aspirin Oral Atorvastatin Calcium Oral Dicyclomine HCl Oral Hydrochlorothiazide Oral LOSARTAN The source(s) of the original Home Medication information: patient The following Medications were given to the patient in the Emergency Department: None. The following Medications were prescribed to the patient: None.
== END 2016-06-26 08:22 | disposition home or self-care (01) ==
LOC: ED SRH 02:55
DX: R04.0 Epistaxis (principal); I10 Essential (primary) hypertension; Z79.899 Other long term (current) drug therapy; Z79.82 Long term (current) use of aspirin
CPT/HCPCS: 83497; 94001; 94060; 95059